=== PATIENT | female | born 2005 | race Caucasian/White ===

== ENCOUNTER → 2023-12-06 10:56 | Outpatient (BNVA) | payer OTHER, SELFPAY | PROVIDERS: Family Provider Pediatrics Adolescent Medicine; Visit Provider Nurse Practitioner | DX: R11.0 Nausea (principal); Z32.02 Encounter for pregnancy test, result negative | CPT/HCPCS: 81025 ==

== ENCOUNTER 2023-12-12 21:16 | Emergency (ER) | payer OTHER, SELFPAY ==
[2023-12-12 21:20] VITALS: BP 121/72; PULSE 142; RESP 16; TEMP 37.2; O2SAT 98
--- NOTE | 2023-12-12 21:33 | PC.NURSE ---
Pt on bedside satellite project site monitor
[2023-12-12] MEDS: diphenhydrAMINE 50 mg/mL SDV 1mL 25 MG IVP (22:04)
[2023-12-12] MEDS: metoclopramide 5 mg/mL SDV 2 mL 10 MG IVP (22:04)
--- NOTE | 2023-12-12 22:04 | W.ED.HA ---
Documented by User: Venkatesh Peña DO 12/13/23 05:52 HPI - Headache General: Chief Complaint: Headache Stated Complaint: Headace,N/V Time Seen by Provider: 12/12/23 21:33 History of Present Illness: Patient presents to the ER with complaints of a headache for 2 weeks along with nausea vomiting chills and a sore throat. Patient has been seen at urgent care and also at [facility] for these. There is no testing noted per the patient however she was given a shot for her headache which did help. But then the symptoms returned. Patient denies any history of chronic headaches or migraines. Review of Systems General: Reports: 10 or more systems reviewed and unremarkable except in HPI and below PFSH ED PFSH: Social History Smoking and tobacco/nicotine status: current every day tobacco/nicotine user e-cigarettes Physical Exam Const: COMMON NORMALS: no acute distress, average body habitus, patient oriented x3, no limitations, healthy appearing, alert and well nourished HENMT: COMMON NORMALS: normocephalic, atraumatic, hearing grossly normal bilaterally, external ears normal, EAC's normal, TM's normal bilaterally, Normal external nose present, Normal nasal mucous membranes and turbinates present, moist oral mucous membranes and oropharynx normal HEAD & SCALP: normocephalic and atraumatic NOSE: Normal external nose present and Normal nasal mucous membranes and turbinates present EXTERNAL EAR: Yes external ears normal EXTERNAL AUDITORY CANAL: EAC's normal TYMPANIC MEMBRANE: TM's normal bilaterally Eye: COMMON NORMALS: Equal, round and reactive pupils present, EOMs intact bilaterally, conjunctivae normal and no scleral icterus CONJUNCTIVA: Yes conjunctivae normal PUPIL: Yes Equal, round and reactive pupils present Neck/C-Spine: COMMON NORMALS: full ROM, no lymphadenopathy, supple, no meningeal signs, no JVD and Thyroid normal THYROID: Thyroid normal Chest: COMMONS NORMALS: normal inspection of the chest and normal palpation of entire chest wall Resp: COMMON NORMALS: normal respiratory effort, No retractions, No use of accessory muscles and clear to auscultation bilaterally AUSCULTATION: clear to auscultation bilaterally Cardio: COMMON NORMALS: no JVD, regular rate, regular rhythm, S1 normal heart sound present, S2 normal heart sound present, No gallops present (Cardio), No clicks present (Cardio), No murmurs present (Cardio) and No rub (Cardio) RATE: regular rate RHYTHM: regular rhythm HEART SOUNDS: S1 normal heart sound present and S2 normal heart sound present GI: COMMON NORMALS: Normal to inspection, nondistended, normoactive bowel sounds present, Soft to palpation, non-tender, No hepatosplenomegaly present and no masses PALPATION: Yes Soft to palpation and Yes No hepatosplenomegaly present Neuro: COMMON NORMALS: patient oriented x3 SENSORIUM/ORIENTATION: Yes alert MENINGEAL SIGNS: Yes no meningeal signs Course Vital Signs: Vital signs: Vital Signs Temperature 99.0 F 12/13/23 15:30 Pulse Rate 109 H 12/13/23 15:30 Respiratory Rate 28 H 12/13/23 15:30 Blood Pressure 113/63 12/13/23 15:30 Pulse Oximetry 96 12/13/23 15:30 Oxygen Delivery Me thod Room Air 12/13/23 09:14 MDM - Headache Differential Diagnosis Likely migraine and headache; Unlikely tension headache, subarachnoid hemorrhage, meningitis, sinusitis or postconcussion syndrome Medical Records I reviewed the patient's medical records. Lab Data I reviewed the patient's lab results. 12/13/23 09:00 12/13/23 09:00 Radiology Impressions Abdomen/Pelvis CT 12/12/23 22:44 IMPRESSION: 1. No visible gallbladder inflammatory change or biliary tree dilation. Equivocal gallstone. Consider ultrasound for further evaluation. 2. Mild splenomegaly. Mildly prominent periportal and para-aortic lymph nodes. Query mononucleosis. Abdomen Ultrasound 12/13/23 00:48 IMPRESSION: No acute findings. Laboratory Results WBC 19.22 10^3/uL (4.5-13.0) H 12/13/23 09:00 Corrected WBC Cancelled 12/12/23 21:36 RBC 4.94 10^6/uL (3.85-5.65) 12/13/23 09:00 Hgb 14.20 g/dL (12.4-14.8) 12/13/23 09:00 Hct 42.3 % (36-47) 12/13/23 09:00 MCV 85.6 fl (85-98) 12/13/23 09:00 MCH 28.7 pg (27-33) 12/13/23 09:00 MCHC 33.6 g/dL (30-55) 12/13/23 09:00 RDW 14.6 % (12.1-15.1) 12/13/23 09:00 Plt Count 209 10^3/cmm (157-399) 12/13/23 09:00 MPV 10.5 fL (7.4-10.4) H 12/13/23 09:00 Gran % Cancelled 12/12/23 21:36 Neut % (Auto) 31.1 % 12/13/23 09:00 Lymph % (Auto) 60.8 % 12/13/23 09:00 Darke % (Auto) 6.2 % 12/13/23 09:00 Eos % (Auto) 0.0 % 12/13/23 09:00 Baso % (Auto) 1.0 % 12/13/23 09:00 Neut # (Auto) 5.97 10^3/uL (1.8-8.0) 12/13/23 09:00 Lymph # (Auto) 11.7 10^3/uL (1.5-6.5) H 12/13/23 09:00 Darke # (Auto) 1.2 10^3/uL (0.2-0.9) H 12/13/23 09:00 Eos # (Auto) 0.0 10^3/uL (0.0-0.8) 12/13/23 09:00 Baso # (Auto) 0.2 10^3/uL (0.0-0.1) H 12/13/23 09:00 Absolute Gran (auto) Cancelled 12/12/23 21:36 Nucleated RBC % (auto) 0 % 12/13/23 09:00 Total Counted 100 (0-100) 12/12/23 22:05 Atypical Lymphs % 13.0 % (0-5) H 12/12/23 22:05 Segmented Neutrophils 39 % 12/12/23 22:05 Abs Segm Neuts (Man) 8.1 10/cmm (1.6-7.1) H 12/12/23 22:05 Band Neutrophils Not Reportable 12/12/23 22:05 Absolute Lymphocytes 11.6 10^3/cmm (1.2-3.4) H 12/12/23 22:05 Lymphocytes (Manual) 43 % 12/12/23 22:05 Monocytes (Manual) 5.0 % 12/12/23 22:05 Absolute Monocytes 1.0 10^3/cmm (0.1-0.6) H 12/12/23 22:05 Eosinophils (Manual) 0 % 12/12/23 22:05 Absolute Eosinophils 0.0 10^3/cmm (0.0-0.7) 12/12/23 22:05 Basophils (Manual) 0.0 % 12/12/23 22:05 Absolute Basophils 0.0 10^3/cmm (0.0-0.2) 12/12/23 22:05 Nucleated RBCs # 0.0 /100WBC 12/13/23 09:00 Smudge Cells 1+ H 12/12/23 22:05 Platelet Estimate Normal (Normal) 12/12/23 22:05 PT 14.40 SECONDS (12.1-14.9) 12/13/23 09:19 INR 1.08 (0.8-1.2) 12/13/23 09:19 Sodium 140 mmol/L (136-145) 12/13/23 09:00 Potassium 3.6 mmol/L (3.5-5.1) 12/13/23 09:00 Chloride 102 mmol/L (98-107) 12/13/23 09:00 Carbon Dioxide 23 mmol/L (22-29) 12/13/23 09:00 Anion Gap 18.6 (5-19) 12/13/23 09:00 BUN 10 mg/dL (6-20) 12/13/23 09:00 Creatinine 0.8 mg/dL (0.5-0.9) 12/13/23 09:00 GFR Calculation 91.4 mL/min (90-130) 12/13/23 09:00 Glucose 84 mg/dL (65-115) 12/13/23 09:00 Calculated Osmolality 288 mOsm/kg (285-295) 12/13/23 09:00 Lactic Acid 1.1 mmol/L (0.5-2.2) 12/13/23 06:11 Calcium 8.6 mg/dL (8.5-10.5) 12/13/23 09:00 Magnesium 2.1 mg/dL (1.7-2.3) 05/22/24 22:05 Total Bilirubin 3.4 mg/dL (0.15-1.2) H 12/13/23 09:00 AST 210 U/L (0-32) H 12/13/23 09:00 ALT 451 U/L (0-33) H 12/13/23 09:00 Alkaline Phosphatase 186 U/L (35-105) H 12/13/23 09:00 Total Protein 7.5 g/dL (6.6-8.7) 12/13/23 09:00 Albumin 3.5 g/dL (3.5-5.2) 12/13/23 09:00 Globulin 4.0 g/dL (1.3-4.6) 12/13/23 09:00 Lipase 39 U/L (13-60) 12/13/23 06:11 HCG, Qual Negative (Negative) 12/12/23 22:35 Urine Color Dark yellow (Yellow) 12/12/23 22: Urine Appearance Slightly cloudy (CLEAR) 12/12/23 22: Urine pH 5 (5-7) 12/12/23 22:35 Ur Specific Watson 1.020 (1.005-1.030) 12/12/23 22: Urine Protein 1+ (Negative) H 12/12/23 22:35 Urine Glucose (UA) Norm (Normal) 12/12/23 22: Urine Ketones 1+ (Negative) H 12/12/23 22:35 Urine Blood 2+ (Negative) H 12/12/23 22:35 Urine Nitrate Positive (Negative) H 12/12/23 22:35 Urine Bilirubin 2+ (Negative) H 12/12/23 22:35 Urine Urobilinogen 4 mg/dL (Negative) H 12/12/23 22:35 Ur Leukocyte Esterase 1+ (Negative) H 12/12/23 22:35 Urine RBC 5-10 /hpf (0-2) H 12/12/23 22:35 Urine WBC 10-15 /hpf (0-5) H 12/12/23 22:35 Ur Squamous Epith Cells 15-25 /hpf (0-5) H 12/12/23 22:35 Amorphous Sediment Not Reportable 12/12/23 22:35 Urine Bacteria 4+ /hpf (NONE) H 12/12/23 22:35 Urine Mucus 3+ /hpf 05/22/24 22:35 Salicylates < 0.3 mg/dL (3-10) L 12/13/23 09:00 Urine Opiates Screen Negative ng/mL (Negative) 12/12/23 22:35 Acetaminophen < 5.0 ug/mL (10-30) L 12/13/23 09:00 Ur Barbiturates Screen Negative ng/mL (Negative) 12/12/23 22:35 Ur Phencyclidine Scrn Negative ng/mL (Negative) 12/12/23 22:35 Ur Amphetamines Screen Negative ng/mL (Negative) 12/12/23 22:35 U Benzodiazepines Scrn Negative ng/mL (Negative) 12/12/23 22:35 Urine Cocaine Screen Negative ng/mL (Negative) 12/12/23 22:35 U Marijuana (THC) Screen Negative ng/mL (Negative) 12/12/23 22:35 Ethyl Alcohol < 10 mg/dL (0-10) 12/13/23 09:00 Hepatitis A IgM Ab Non-reactive (Nonreactive) 12/13/23 06:37 Hep Bs Antigen Non-reactive (Nonreactive) 12/13/23 06:37 Hep B Core IgM Ab Non-reactive (Nonreactive) 12/13/23 06:37 Hepatitis C Antibody Non-reactive (Nonreactive) 12/13/23 06:37 Monoscreen Negative (Negative) 12/12/23 22:05 Group A Strep Rapid Negative (Negative) 12/12/23 21:58 Discharge Plan Discharge Patient Disposition: Transfer to ED Clinical Impression: Ascending cholangitis Condition: Stable Prescriptions: No Action No Known Home Medications Referrals: Shannan Mariano MD [Primary Care Provider] - Sign Out Sign Out Data: Patient Sign Out occurred on 12/13/23 at 06:04. Patient's care was discussed, and care was transferred from Venkatesh Peña DO to Johnny Heredia DO. Coding Level of Care Code ED Brewery Technician for Chg Fwd Documented by User: Johnny Heredia DO 12/13/23 15:59 HPI - Headache General: Chief Complaint: Headache Stated Complaint: Headace,N/V Time Seen by Provider: 12/12/23 21:33 [facility] ED PFSH: Social History Smoking and tobacco/nicotine status: current every day tobacco/nicotine user e-cigarettes Course Vital Signs: Vital signs: Vital Signs Temperature 99.0 F 12/13/23 15:30 Pulse Rate 109 H 12/13/23 15:30 Respiratory Rate 28 H 12/13/23 15:30 Blood Pressure 113/63 12/13/23 15:30 Pulse Oximetry 96 12/13/23 15:30 Oxygen Delivery Me thod Room Air 12/13/23 09:14 MDM - Headache Medical Decision Making Care assumed at change of shift. Patient has initially presented is having a headache she describes as more of a tension like bandlike headache. Reviewing the labs that are done she has a significant white count with elevation of her Ruth liver enzymes and her T. bili lipase is normal. When I acquired her care from Dr. Peña was concerned about choledocholithiasis. Gallbladder ultrasound did not show any dilation of common bile duct or abnormalities of the gallbladder hepatitis panel was negative lipase was not elevated. She did have a significant number of atypical lymphocytes for Monospot was negative Eneida-Angel virus and tick panel ordered these will be done in a later time since they are send outs. Hepatitis acute panel was negative. Contacted GI at [facility] we checked a INR. This was normal they agreed to accept the patient for possible ERCP we had initiated Zosyn while she was here. Reviewed findings with the patient and her mother and next discussed the potential concerns and reason for referral they are agreeable. Medical Records I reviewed the patient's medical records. Lab Data I reviewed the patient's lab results. 12/13/23 09:00 12/13/23 09:00 Radiology Impressions Abdomen/Pelvis CT 12/12/23 22:44 IMPRESSION: 1. No visible gallbladder inflammatory change or biliary tree dilation. Equivocal gallstone. Consider ultrasound for further evaluation. 2. Mild splenomegaly. Mildly prominent periportal and para-aortic lymph nodes. Query mononucleosis. Abdomen Ultrasound 12/13/23 00:48 IMPRESSION: No acute findings. Laboratory Results WBC 19.22 10^3/uL (4.5-13.0) H 12/13/23 09:00 Corrected WBC Cancelled 12/12/23 21:36 RBC 4.94 10^6/uL (3.85-5.65) 12/13/23 09:00 Hgb 14.20 g/dL (12.4-14.8) 12/13/23 09:00 Hct 42.3 % (36-47) 12/13/23 09:00 MCV 85.6 fl (85-98) 12/13/23 09:00 MCH 28.7 pg (27-33) 12/13/23 09:00 MCHC 33.6 g/dL (30-55) 12/13/23 09:00 RDW 14.6 % (12.1-15.1) 12/13/23 09:00 Plt Count 209 10^3/cmm (157-399) 12/13/23 09:00 MPV 10.5 fL (7.4-10.4) H 12/13/23 09:00 Gran % Cancelled 12/12/23 21:36 Neut % (Auto) 31.1 % 12/13/23 09:00 Lymph % (Auto) 60.8 % 12/13/23 09:00 Darke % (Auto) 6.2 % 12/13/23 09:00 Eos % (Auto) 0.0 % 12/13/23 09:00 Baso % (Auto) 1.0 % 12/13/23 09:00 Neut # (Auto) 5.97 10^3/uL (1.8-8.0) 12/13/23 09:00 Lymph # (Auto) 11.7 10^3/uL (1.5-6.5) H 12/13/23 09:00 Darke # (Auto) 1.2 10^3/uL (0.2-0.9) H 12/13/23 09:00 Eos # (Auto) 0.0 10^3/uL (0.0-0.8) 12/13/23 09:00 Baso # (Auto) 0.2 10^3/uL (0.0-0.1) H 12/13/23 09:00 Absolute Gran (auto) Cancelled 12/12/23 21:36 Nucleated RBC % (auto) 0 % 12/13/23 09:00 Total Counted 100 (0-100) 12/12/23 22:05 Atypical Lymphs % 13.0 % (0-5) H 12/12/23 22:05 Segmented Neutrophils 39 % 12/12/23 22:05 Abs Segm Neuts (Man) 8.1 10/cmm (1.6-7.1) H 12/12/23 22:05 Band Neutrophils Not Reportable 12/12/23 22:05 Absolute Lymphocytes 11.6 10^3/cmm (1.2-3.4) H 12/12/23 22:05 Lymphocytes (Manual) 43 % 12/12/23 22:05 Monocytes (Manual) 5.0 % 12/12/23 22:05 Absolute Monocytes 1.0 10^3/cmm (0.1-0.6) H 12/12/23 22:05 Eosinophils (Manual) 0 % 12/12/23 22:05 Absolute Eosinophils 0.0 10^3/cmm (0.0-0.7) 12/12/23 22:05 Basophils (Manual) 0.0 % 12/12/23 22:05 Absolute Basophils 0.0 10^3/cmm (0.0-0.2) 12/12/23 22:05 Nucleated RBCs # 0.0 /100WBC 12/13/23 09:00 Smudge Cells 1+ H 12/12/23 22:05 Platelet Estimate Normal (Normal) 12/12/23 22:05 PT 14.40 SECONDS (12.1-14.9) 12/13/23 09:19 INR 1.08 (0.8-1.2) 12/13/23 09:19 Sodium 140 mmol/L (136-145) 12/13/23 09:00 Potassium 3.6 mmol/L (3.5-5.1) 12/13/23 09:00 Chloride 102 mmol/L (98-107) 12/13/23 09:00 Carbon Dioxide 23 mmol/L (22-29) 12/13/23 09:00 Anion Gap 18.6 (5-19) 12/13/23 09:00 BUN 10 mg/dL (6-20) 12/13/23 09:00 Creatinine 0.8 mg/dL (0.5-0.9) 12/13/23 09:00 GFR Calculation 91.4 mL/min (90-130) 12/13/23 09:00 Glucose 84 mg/dL (65-115) 12/13/23 09:00 Calculated Osmolality 288 mOsm/kg (285-295) 12/13/23 09:00 Lactic Acid 1.1 mmol/L (0.5-2.2) 12/13/23 06:11 Calcium 8.6 mg/dL (8.5-10.5) 12/13/23 09:00 Magnesium 2.1 mg/dL (1.7-2.3) 12/12/23 22:05 Total Bilirubin 3.4 mg/dL (0.15-1.2) H 12/13/23 09:00 AST 210 U/L (0-32) H 12/13/23 09:00 ALT 451 U/L (0-33) H 12/13/23 09:00 Alkaline Phosphatase 186 U/L (35-105) H 12/13/23 09:00 Total Protein 7.5 g/dL (6.6-8.7) 12/13/23 09:00 Albumin 3.5 g/dL (3.5-5.2) 12/13/23 09:00 Globulin 4.0 g/dL (1.3-4.6) 12/13/23 09:00 Lipase 39 U/L (13-60) 12/13/23 06:11 HCG, Qual Negative (Negative) 12/12/23: Urine Color Dark yellow (Yellow) 12/12/23 22: Urine Appearance Slightly cloudy (CLEAR) 12/12/23 22:35 Urine pH 5 (5-7) 12/12/23 22:35 Ur Specific Watson 1.020 (1.005-1.030) 12/12/23 22:35 Urine Protein 1+ (Negative) H 12/12/23 22:35 Urine Glucose (UA) Norm (Normal) 12/12/23 22:35 Urine Ketones 1+ (Negative) H 12/12/23 22:35 Urine Blood 2+ (Negative) H 12/12/23 22:35 Urine Nitrate Positive (Negative) H 12/12/23 22:35 Urine Bilirubin 2+ (Negative) H 12/12/23 22:35 Urine Urobilinogen 4 mg/dL (Negative) H 12/12/23 22:35 Ur Leukocyte Esterase 1+ (Negative) H 12/12/23 22:35 Urine RBC 5-10 /hpf (0-2) H 12/12/23 22:35 Urine WBC 10-15 /hpf (0-5) H 12/12/23 22:35 Ur Squamous Epith Cells 15-25 /hpf (0-5) H 12/12/23 22:35 Amorphous Sediment Not Reportable 12/12/23 22:35 Urine Bacteria 4+ /hpf (NONE) H 12/12/23 22:35 Urine Mucus 3+ /hpf 12/12/23 22:35 Salicylates < 0.3 mg/dL (3-10) L 12/13/23 09:00 Urine Opiates Screen Negative ng/mL (Negative) 12/12/23 22:35 Acetaminophen < 5.0 ug/mL (10-30) L 12/13/23 09:00 Ur Barbiturates Screen Negative ng/mL (Negative) 12/12/23 22:35 Ur Phencyclidine Scrn Negative ng/mL (Negative) 12/12/23 22:35 Ur Amphetamines Screen Negative ng/mL (Negative) 12/12/23 22:35 U Benzodiazepines Scrn Negative ng/mL (Negative) 12/12/23 22:35 Urine Cocaine Screen Negative ng/mL (Negative) 12/12/23 22:35 U Marijuana (THC) Screen Negative ng/mL (Negative) 12/12/23 22:35 Ethyl Alcohol < 10 mg/dL (0-10) 12/13/23 09:00 Hepatitis A IgM Ab Non-reactive (Nonreactive) 12/13/23 06:37 Hep Bs Antigen Non-reactive (Nonreactive) 12/13/23 06:37 Hep B Core IgM Ab Non-reactive (Nonreactive) 12/13/23 06:37 Hepatitis C Antibody Non-reactive (Nonreactive) 12/13/23 06:37 Monoscreen Negative (Negative) 12/12/23 22:05 Group A Strep Rapid Negative (Negative) 12/12/23 21:58 All radiology interpretation(s) finalized by discharge Discharge Plan Discharge Patient Disposition: Transfer to ED Clinical Impression: Ascending cholangitis Condition: Stable Prescriptions: No Action No Known Home Medications Referrals: Shannan Mariano MD [Primary Care Provider] - Sign Out Sign Out Data: Patient Sign Out occurred on 12/13/23 at 06:04. Patient's care was discussed, and care was transferred from Venkatesh Peña DO to Johnny Heredia DO. Coding Level of Care Code ED Brewery Technician for Louiseg Johana
[2023-12-12] MEDS: ketorolac 30 mg/mL INJ IVP (22:05)
[2023-12-12] MEDS: sodium chloride 0.9% 1,000 ML 999 ML IV (22:08)
[2023-12-12 22:09] VITALS: BP 134/86; PULSE 118; RESP 18; O2SAT 98
[2023-12-12 22:12] LABS: Hematocrit 42.5 % (36-47); Mean Corpuscular HGB Conc 34.1 g/dL (30-55); Mean Platelet Volume 10.1 fL (7.4-10.4); Platelet Count 199 10^3/cmm (157-399); Red Cell Distribution Width 14.4 % (12.1-15.1); White Blood Count 20.74 10^3/uL (4.5-13.0)
[2023-12-12 22:20] LABS: Rapid Strep A Test Negative (Negative)
[2023-12-12 22:32] LABS: Alanine Aminotransferase 526 U/L (0-33); Albumin Level 3.8 g/dL (3.5-5.2); Alkaline Phosphatase 196 U/L (35-105); Anion Gap 17.3 (5-19); Aspartate Amino Transferase 272 U/L (0-32); Blood Urea Nitrogen 8 mg/dL (6-20); Calcium 8.5 mg/dL (8.5-10.5); Carbon Dioxide 23 mmol/L (22-29); Chloride 100 mmol/L (98-107); Glomerular Filtration Rate 106.7 mL/min (90-130); Glucose 96 mg/dL (65-115); Magnesium 2.1 mg/dL (1.7-2.3); Osmolality Calculated 282 mOsm/kg (285-295); Potassium 3.3 mmol/L (3.5-5.1); Sodium 137 mmol/L (136-145); Total Bilirubin 3.6 mg/dL (0.15-1.2); Total Protein 7.8 g/dL (6.6-8.7)
[2023-12-12 22:33] LABS: Slide Review Slide Review Perform
[2023-12-12 22:34] LABS: Absolute Segmented Neutrophil 8.1 10/cmm (1.6-7.1); Eosinophils 0 %; Lymphocytes 43 %; Lymphocytes Absolute 11.6 10^3/cmm (1.2-3.4); Platelet Estimate Normal (Normal); Segmented Neutrophils 39 %; Smudge Cells 1+; Total Cells Counted 100 (0-100)
[2023-12-12 22:38] VITALS: BP 136/81; PULSE 111; RESP 16; O2SAT 95
[2023-12-12 22:42] LABS: HCG Qualitative Urine. Negative (Negative)
--- NOTE | 2023-12-12 22:44 | CTR_ITS ---
PROCEDURE INFORMATION: Exam: CT Abdomen And Pelvis With Contrast Exam date and time: 12/12/2023 11:20 PM Age: 18 years old Clinical indication: Other: Elev lfts; Additional info: Elevated lfts and bilirubin, tachycardia TECHNIQUE: Imaging protocol: Computed tomography of the abdomen and pelvis with contrast. Radiation optimization: All CT scans at this facility use at least one of these dose optimization techniques: automated exposure control; mA and/or kV adjustment per patient size (includes targeted exams where dose is matched to clinical indication); or iterative reconstruction. Contrast material: [id number]; Contrast volume: 100 ml; Contrast route: INTRAVENOUS (IV); COMPARISON: CR XR chest 2V* [id number] 06/07/2017 7:19 PM RADIATION DOSE METRICS: Total DLP (mGy-cm): 761.2 FINDINGS: Lungs: Clear basilar lung parenchyma. Pleural spaces: No pleural fluid. Heart: Normal heart size. Liver: Minimal fatty infiltration of the liver. Liver measures 16.6 cm in length. Gallbladder and bile ducts: There may be a gallstone in the thin walled gallbladder. No gallbladder inflammatory change or biliary tree dilation. Pancreas: Normal. No ductal dilation. Spleen: Spleen measures 13.5 cm in length. Adrenal glands: Normal configuration. Kidneys and ureters: Kidneys enhance symmetrically and demonstrate no evidence of mass, calculus, obstruction, or inflammation. Stomach and bowel: Unremarkable. No obstruction. No mural thickening. Appendix: Normal appendix is confirmed. Intraperitoneal space: No free air. No significant fluid collection. Vasculature: Normal caliber arterial structures. Lymph nodes: Scattered non pathologically enlarged para-aortic lymph nodes are noted. Several mildly prominent periportal lymph nodes are visible. Urinary bladder: Unremarkable as visualized. Reproductive: Physiologic appearance for age. Bones/joints: No fracture or destructive lesion. Soft tissues: Tiny fat containing umbilical hernia. CT/CT abdomen pelvis w con* [id number] IMPRESSION: 1. No visible gallbladder inflammatory change or biliary tree dilation. Equivocal gallstone. Consider ultrasound for further evaluation. 2. Mild splenomegaly. Mildly prominent periportal and para-aortic lymph nodes. Query mononucleosis.
[2023-12-12 22:57] LABS: Bilirubin Urine 2+ (Negative); Blood Urine 2+ (Negative); Glucose Urine UA Norm (Normal); Ketones Urine 1+ (Negative); Nitrate Urine Positive (Negative); Protein Urine 1+ (Negative); Urine Appearance Slightly Cloudy (CLEAR); Urine Color Dark Yellow (Yellow); pH Urine 5 (5-7)
[2023-12-12 22:58] LABS: Add Urine Microscopic? YES; Leukocyte Esterase Urine 1+ (Negative); Urobilinogen Urine 4 mg/dL (Negative)
[2023-12-12 22:59] LABS: Add Urine Culture? No; Bacteria Urine 4+ /hpf; Mucus Urine 3+ /hpf; Squamous Epithelial Cell Urine 15-25 /hpf (0-5)
[2023-12-12 23:01] LABS: Monoscreen Negative (Negative)
[2023-12-12 23:02] LABS: Amphetamines Screen Urine Negative (Negative); Barbiturates Screen Urine Negative (Negative); Benzodiazepines Screen Urine Negative (Negative); Cocaine Screen Urine Negative (Negative); Opiate Screen Urine Negative (Negative); PCP Screen Urine Negative (Negative); THC Screen Urine Negative (Negative)
[2023-12-12 23:06] VITALS: BP 128/79; PULSE 112; RESP 18; O2SAT 95
[2023-12-12] MEDS: iohexol 350 mg/mL 500 mL Btl (per mL) IV (23:21)
[2023-12-12 23:31] VITALS: BP 124/73; PULSE 104; RESP 18; O2SAT 95
[2023-12-13] VITALS (48 sets, daily range): BP systolic 111–151; BP diastolic 44–96; PULSE 96–128; RESP 12–31; TEMP 37.2; O2SAT 94–99
--- NOTE | 2023-12-13 00:48 | USR_ITS ---
PROCEDURE INFORMATION: Exam: US Abdomen, Limited; Right Upper Quadrant Exam date and time: 12/13/2023 12:57 AM Age: 18 years old Clinical indication: Abdominal pain; Epigastric; Additional info: Ruq US, high lfts, possible gallstone on CT TECHNIQUE: Imaging protocol: Real time ultrasound of the abdomen with image documentation. Limited exam focused on the right upper quadrant. COMPARISON: CT abdomen pelvis w con* [id number] 12/12/2023 11:20 PM FINDINGS: Liver: Normal. No masses. Gallbladder: Normal. No gallstones. There is no gallbladder wall thickening. Biliary ducts: Normal. No stones. No dilation. Pancreas: Visualized pancreas is unremarkable. Right kidney: Normal. No mass. No hydronephrosis. US/US abdomen limited [id number] IMPRESSION: No acute findings.
[2023-12-13] MEDS: piperacillin-tazobactam 3.375 GM in sodium chloride 0.9% (plus) 50 ML IV (06:00)
[2023-12-13 06:42] LABS: Lactic Sepsis W/Reflex 1.1 mmol/L (0.5-2.2); Lipase 39 U/L (13-60)
[2023-12-13 07:49] LABS: Hepatitis A Antibody IgM Non-Reactive (Nonreactive); Hepatitis B Core IgM Non-Reactive (Nonreactive); Hepatitis B Surface Antigen Non-Reactive (Nonreactive); Hepatitis C Virus Antibody Non-Reactive (Nonreactive)
[2023-12-13] MEDS: sodium chloride 0.9% 1,000 ML 999 ML IV (09:02)
[2023-12-13 09:21] LABS: Basophils # 0.2 10^3/uL (0.0-0.1); Hematocrit 42.3 % (36-47); Lymphocytes # 11.7 10^3/uL (1.5-6.5); Lymphocytes % 60.8 %; Mean Corpuscular HGB Conc 33.6 g/dL (30-55); Mean Corpuscular Hemoglobin 28.7 pg (27-33); Mean Corpuscular Volume 85.6 fl (85-98); Mean Platelet Volume 10.5 fL (7.4-10.4); Monocytes # 1.2 10^3/uL (0.2-0.9); Monocytes % 6.2 %; Neutrophils # 5.97 10^3/uL (1.8-8.0); Neutrophils % 31.1 %; Nucleated Red Blood Cells % 0 %; Platelet Count 209 10^3/cmm (157-399); Red Blood Count 4.94 10^6/uL (3.85-5.65); Red Cell Distribution Width 14.6 % (12.1-15.1); White Blood Count 19.22 10^3/uL (4.5-13.0)
[2023-12-13 09:26] LABS: Alanine Aminotransferase 451 U/L (0-33); Albumin Level 3.5 g/dL (3.5-5.2); Alkaline Phosphatase 186 U/L (35-105); Aspartate Amino Transferase 210 U/L (0-32); Blood Urea Nitrogen 10 mg/dL (6-20); Calcium 8.6 mg/dL (8.5-10.5); Carbon Dioxide 23 mmol/L (22-29); Chloride 102 mmol/L (98-107); Creatinine Clr Calc Pharmacy 111.1906; Glomerular Filtration Rate 91.4 mL/min (90-130); Glucose 84 mg/dL (65-115); Osmolality Calculated 288 mOsm/kg (285-295); Sodium 140 mmol/L (136-145); Total Bilirubin 3.4 mg/dL (0.15-1.2); Total Protein 7.5 g/dL (6.6-8.7)
[2023-12-13 09:27] LABS: Acetaminophen < 5.0 ug/mL (10-30); Alcohol Level < 10 mg/dL (0-10); Anion Gap 18.6 (5-19); Potassium 3.6 mmol/L (3.5-5.1); Salicylate < 0.3 mg/dL (3-10)
[2023-12-13 09:55] LABS: INR 1.08 (0.8-1.2)
[2023-12-13 10:05] LABS: Slide Review Slide Review Perform
[2023-12-17 07:40] LABS: Epstein Barr Virus DNA PCR 4.69; Epstein Barr Virus DNA QN PCR 49168 copies/mL; Epstein Barr Virus Source WHOLE BLOOD
[2023-12-18 14:41] LABS: Lyme AB IGG, Blot NEGATIVE (NEGATIVE)
[2023-12-19 20:25] LABS: RMSF IGG NOT DETECTED; RMSF IGM NOT DETECTED
[2023-12-19 21:25] LABS: E. Chaffeensis AB IGG <1:64; E. Chaffeensis AB IGM <1:20
== END 2023-12-13 15:34 ==
PROVIDERS: Emergency Medicine; Emergency Provider Family Medicine; PCP Pediatrics Adolescent Medicine
DX: K83.09 Other cholangitis (principal); F17.290 Nicotine dependence, other tobacco product, uncomplicated
CPT/HCPCS: 36415; 74177; 76705; 80053; 80074; 80306; 80307; 81001; 81025; 83605; 83690; 83735; 85007; 85025; 85610; 86308; 86618; 86666; 86757; 87081; 87798; 87880; 96361; 96365; 96375; 99285; J1200; J1885; J2543; J2765; J7030; Q9967

== ENCOUNTER → 2024-01-02 10:08 | Outpatient (BNVA) | payer OTHER, SELFPAY | PROVIDERS: PCP Clinical Nurse Specialist Adult Health; Visit Provider Clinical Nurse Specialist Adult Health | DX: R10.13 Epigastric pain (principal); R74.01 Elevation of levels of liver transaminase levels | CPT/HCPCS: 80053; 85025; 86140 ==

== ENCOUNTER → 2024-05-16 10:53 | Outpatient (BNVA) | payer OTHER, SELFPAY | DX: Z32.01 Encounter for pregnancy test, result positive (principal); N92.6 Irregular menstruation, unspecified | CPT/HCPCS: 81025; 84702 ==

== ENCOUNTER → 2024-06-12 12:54 | Outpatient (BNVA) | payer OTHER, SELFPAY | PROVIDERS: Visit Provider Nurse Practitioner Women's Health | DX: N91.2 Amenorrhea, unspecified (principal); N92.6 Irregular menstruation, unspecified | CPT/HCPCS: 76801; 81025 ==

== ENCOUNTER → 2024-07-10 10:27 | Outpatient (BNVA) | payer OTHER, SELFPAY | PROVIDERS: Visit Provider Nurse Practitioner Women's Health | DX: Z34.90 Encounter for supervision of normal pregnancy, unspecified, unspecified trimester (principal) | CPT/HCPCS: 80307; 82105; 83036; 84315; 85025; 86592; 86762; 86803; 86850; 86900; 87086; 87340; 87491; 87591; 87661; 87806 ==

== ENCOUNTER → 2024-07-31 11:18 | Outpatient (BNVA) | payer OTHER, SELFPAY | PROVIDERS: Visit Provider Obstetrics & Gynecology | DX: Z34.02 Encounter for supervision of normal first pregnancy, second trimester (principal); Z3A.00 Weeks of gestation of pregnancy not specified | CPT/HCPCS: 84315; 87491; 87591; 87661 ==

== ENCOUNTER → 2024-08-05 09:14 | Outpatient (BNVA) | payer OTHER, SELFPAY | PROVIDERS: Visit Provider Obstetrics & Gynecology | DX: Z34.92 Encounter for supervision of normal pregnancy, unspecified, second trimester (principal) | CPT/HCPCS: 76805 ==

== ENCOUNTER → 2024-08-14 08:59 | Outpatient (BNVA) | payer OTHER, SELFPAY | PROVIDERS: Visit Provider Obstetrics & Gynecology | DX: Z34.02 Encounter for supervision of normal first pregnancy, second trimester (principal) | CPT/HCPCS: 82950; 84315; 87086 ==

== ENCOUNTER → 2024-08-28 09:57 | Outpatient (BNVA) | payer OTHER, SELFPAY | PROVIDERS: Visit Provider Nurse Practitioner Women's Health | DX: Z34.02 Encounter for supervision of normal first pregnancy, second trimester (principal) | CPT/HCPCS: 84315; 87086 ==

== ENCOUNTER 2024-09-10 21:18 | Outpatient (CLI) | payer OTHER, SELFPAY ==
[2024-09-10 21:15] VITALS: BMI 38.7
[2024-09-10 21:22] VITALS: BP 151/76; PULSE 104
[2024-09-10 21:24] VITALS: BP 148/65; PULSE 96
[2024-09-10] MEDS: acetaminophen 500 mg Tablet 1000 MG PO (22:14)
[2024-09-10] MEDS: ondansetron 2 mg/ML SDV 2 mL 4 MG IVP (22:14)
[2024-09-10] MEDS: lactated ringers 1,000 ML 999 ML IV (22:15)
[2024-09-10 22:19] VITALS: BP 113/62; PULSE 92
[2024-09-10 22:21] LABS: Bilirubin Urine Negative (Negative); Blood Urine Negative (Negative); Glucose Urine UA Negative (Normal); Ketones Urine Negative (Negative); Leukocyte Esterase Urine Negative (Negative); Nitrate Urine Negative (Negative); Protein Urine Trace (Negative); Urine Appearance Cloudy (CLEAR); Urine Color Yellow (Yellow)
[2024-09-10 22:23] LABS: UA Manual Slide Review YES
[2024-09-10 22:34] VITALS: BP 111/57; PULSE 88
[2024-09-10 22:38] LABS: Add Urine Culture? No; Amorphous Sediment Urine 1+ /hpf; Squamous Epithelial Cell Urine 0-4 /hpf (0-5)
[2024-09-10 22:49] VITALS: BP 108/58; PULSE 83
[2024-09-10 23:04] VITALS: BP 116/58; PULSE 89
== END 2024-09-10 23:13 | disposition home or self-care (01) ==
LOC: OPOB 21:19 → OBGYN 21:20
PROVIDERS: Visit Provider Obstetrics & Gynecology
DX: O26.899 Other specified pregnancy related conditions, unspecified trimester (principal); Z3A.00 Weeks of gestation of pregnancy not specified; R10.9 Unspecified abdominal pain
CPT/HCPCS: 81001; 96374; 99211; J2405; J7120

== ENCOUNTER → 2024-09-26 10:26 | Outpatient (BNVA) | payer OTHER, SELFPAY | PROVIDERS: Visit Provider Obstetrics & Gynecology | DX: Z34.90 Encounter for supervision of normal pregnancy, unspecified, unspecified trimester (principal) | CPT/HCPCS: 84315; 85025 ==

== ENCOUNTER → 2024-10-02 08:00 | Outpatient (BNVA) | payer OTHER, SELFPAY | PROVIDERS: Visit Provider Obstetrics & Gynecology | DX: Z34.93 Encounter for supervision of normal pregnancy, unspecified, third trimester (principal) | CPT/HCPCS: 82951; 82952; 85025 ==

== ENCOUNTER → 2024-10-09 09:52 | Outpatient (BNVA) | payer OTHER, SELFPAY | PROVIDERS: Visit Provider Obstetrics & Gynecology | DX: Z34.90 Encounter for supervision of normal pregnancy, unspecified, unspecified trimester (principal) | CPT/HCPCS: 84315 ==

== ENCOUNTER 2024-10-16 01:46 | Outpatient (CLI) | payer OTHER, SELFPAY ==
[2024-10-16] VITALS (16 sets, daily range): BP systolic 104–163; BP diastolic 54–90; PULSE 75–93; RESP 16; TEMP 36.9; O2SAT 99; BMI 41.0
== END 2024-10-16 06:46 | disposition home or self-care (01) ==
LOC: OPOB 01:46 → OBGYN 01:47
PROVIDERS: Visit Provider Obstetrics & Gynecology
DX: O26.899 Other specified pregnancy related conditions, unspecified trimester (principal); Z3A.00 Weeks of gestation of pregnancy not specified; R10.9 Unspecified abdominal pain
CPT/HCPCS: 59025; 99211

== ENCOUNTER → 2024-10-23 10:04 | Outpatient (BNVA) | payer OTHER, SELFPAY | PROVIDERS: Visit Provider Nurse Practitioner Women's Health | DX: Z34.90 Encounter for supervision of normal pregnancy, unspecified, unspecified trimester (principal) | CPT/HCPCS: 84315 ==

== ENCOUNTER → 2024-11-07 08:11 | Outpatient (BNVA) | payer OTHER, SELFPAY | PROVIDERS: Visit Provider Nurse Practitioner Women's Health | DX: Z34.92 Encounter for supervision of normal pregnancy, unspecified, second trimester (principal) | CPT/HCPCS: 84315 ==

== ENCOUNTER → 2024-11-21 08:13 | Outpatient (BNVA) | payer OTHER, SELFPAY | PROVIDERS: Visit Provider Nurse Practitioner Women's Health | DX: Z34.90 Encounter for supervision of normal pregnancy, unspecified, unspecified trimester (principal) | CPT/HCPCS: 84315; 87081 ==

== ENCOUNTER 2024-11-27 08:12 | Outpatient (CLI) | payer OTHER, MEDICAID, SELFPAY | END 2024-11-27 08:13 | disposition home or self-care (01) | LOC: OPOB 12-12 12:52 | PROVIDERS: Visit Provider Nurse Practitioner Women's Health | DX: Z34.90 Encounter for supervision of normal pregnancy, unspecified, unspecified trimester (principal); Z36.9 Encounter for antenatal screening, unspecified | CPT/HCPCS: 76816; 76820; 84315 ==

== ENCOUNTER → 2024-12-03 08:07 | Outpatient (BNVA) | payer OTHER, MEDICAID, SELFPAY | PROVIDERS: Visit Provider Obstetrics & Gynecology | DX: Z34.90 Encounter for supervision of normal pregnancy, unspecified, unspecified trimester (principal) | CPT/HCPCS: 84315 ==

== ENCOUNTER 2024-12-06 06:33 | Outpatient (CLI) | payer OTHER, MEDICAID, SELFPAY ==
[2024-12-06 06:44] VITALS: RESP 18; BMI 43.5
[2024-12-06 06:52] VITALS: BP 138/78; PULSE 105
[2024-12-06 06:53] VITALS: RESP 18
[2024-12-06 08:03] LABS: Bilirubin Urine 1+ (Negative); Blood Urine Negative (Negative); Glucose Urine UA Negative (Normal); Ketones Urine Trace (Negative); Leukocyte Esterase Urine 1+ (Negative); Nitrate Urine Negative (Negative); Protein Urine 1+ (Negative); Urine Appearance Clear (CLEAR); Urine Color Dark Yellow (Yellow); pH Urine 7.5 (5-7)
[2024-12-06 08:07] LABS: RBC Urine 0-2 /hpf (0-2); Specific Gravity, Urine 1.034 (1.005-1.030); WBC Urine 21-50 /hpf (0-5)
[2024-12-06 08:08] LABS: Add Urine Culture? No; Bacteria Urine 4+ /hpf; Hyaline Casts Urine 3.71 /lpf
--- NOTE | 2024-12-06 08:20 | P.TNLD_ITS ---
OB L&D Triage Visit Information: Date of evaluation: 12/08/24 Comments/Additional reason(s) for visit: 19 y.o. G1 EDC December 17, 2024 At 38 w 3 d Presents to L&D c/o right-sided abdominal pain since last night + nausea and vomiting No fever, chills No vaginal bleeding or fluid leakage No back pain, dysuria + active movements Evaluation: monitor accelerations: Present 15x15 Laboratory results: Laboratory Tests 12/06/24 12/06/24 06:57 09:35 WBC 10.91 RBC 4.24 Hgb 11.50 Hct 35.5 L MCV 83.7 L MCH 27.1 MCHC 32.4 RDW 12.8 Plt Count 331 MPV 9.9 Neut % (Auto) 80.0 Lymph % (Auto) 13.7 [place] % (Auto) 5.5 Eos % (Auto) 0.1 Baso % (Auto) 0.4 Neut # (Auto) 8.73 H Lymph # (Auto) 1.5 [place] # (Auto) 0.6 Eos # (Auto) 0.0 Baso # (Auto) 0.0 Nucleated RBC % (a uto) 0 Nucleated RBCs # 0.0 Sodium 136 Potassium 3.7 Chloride 102 Carbon Dioxide 21 L Anion Gap 16.7 BUN 8 Creatinine 0.5 GFR Calculation 155.7 H Glucose 75 Calculated Osmolal ity 279 L Calcium 8.7 Total Bilirubin 0.9 AST 36 H ALT 36 H Alkaline Phosphata se 177 H Total Protein 6.5 L Albumin 3.3 L Globulin 3.2 Urine Color Dark yellow A Urine Appearance Clear Urine pH 7.5 Ur Specific Gravit y 1.034 H Urine Protein 1+ A Urine Glucose (UA) Negative Urine Ketones Trace Urine Blood Negative Urine Nitrate Negative Urine Bilirubin 1+ H Urine Urobilinogen 1.0 Ur Leukocyte Sarahi ase 1+ A Urine RBC 0-2 Urine WBC 21-50 H Ur Squamous Epith Cells 11-20 H Amorphous Sediment Not Reportable Urine Bacteria 4+ H Hyaline Casts 3.71 Comments: VS afebrile, VS normal General mild discomfort, awake, alert HEENT normal Lungs clear Cor: RRR Abd: gravid Soft, + moderate tenderness to palpation right abdomen No rebound Ext: no edema External monitor: no uterine contractions heart tracing good variability, + accelerations Care JATINDER Calculator Estimated Delivery Date Method Current WG Current Estimate 12/17/24 LMP (Certain) 38w 5d Other Estimates 12/18/24 Ultrasound #1 38w 4d Specific Issues/Plans * OBESITY normal early GCT; 3-hour GTT normal * DEPRESSION managed without medication Final Diagnosis Final Diagnosis (1) Supervision of normal first : Plan: 38 w 3 d Status: Acute Qualifiers: Trimester: second trimester Qualified Code(s): Z34.02 - Encounter for supervision of normal first , second trimester Code(s): Z34.00 - Encounter for supervision of normal first , unspecified trimester (2) Abdominal pain: Plan: Right-sided abdominal pain Draw CBC, CMP Send UA and urine culture Plan MRI for possible appendicitis or cholelithiasis Status: Acute Code(s): R10.9 - Unspecified abdominal pain Coding Level of Care Code Acute Code for Chg Fwd Diagnoses Encounter for supervision of normal first in second trimester Z34.02 Trimester: second trimester Abdominal pain R10.9
[2024-12-06 09:44] LABS: Basophils % 0.4 %; Eosinophils % 0.1 %; Hematocrit 35.5 % (36-47); Lymphocytes # 1.5 10^3/uL (0.8-4.8); Lymphocytes % 13.7 %; Mean Corpuscular HGB Conc 32.4 g/dL (30-55); Mean Corpuscular Hemoglobin 27.1 pg (27-33); Mean Corpuscular Volume 83.7 fl (85-98); Mean Platelet Volume 9.9 fL (7.4-10.4); Monocytes # 0.6 10^3/uL (0.2-0.9); Monocytes % 5.5 %; Neutrophils # 8.73 10^3/uL (1.8-7.7); Nucleated Red Blood Cells % 0 %; Platelet Count 331 10^3/cmm (157-399); Red Blood Count 4.24 10^6/uL (3.85-5.65); Red Cell Distribution Width 12.8 % (12.1-15.1); White Blood Count 10.91 10^3/uL (3.29-11.43)
[2024-12-06 09:55] VITALS: BP 110/60; PULSE 80
[2024-12-06 10:01] LABS: Alanine Aminotransferase 36 U/L (0-33); Albumin Level 3.3 g/dL (3.5-5.2); Alkaline Phosphatase 177 U/L (35-105); Anion Gap 16.7 (5-19); Aspartate Amino Transferase 36 U/L (0-32); Blood Urea Nitrogen 8 mg/dL (6-20); Calcium 8.7 mg/dL (8.5-10.5); Carbon Dioxide 21 mmol/L (22-29); Chloride 102 mmol/L (98-107); Creatinine Clr Calc Pharmacy 198.0888; Globulin 3.2 g/dL (1.3-4.6); Glomerular Filtration Rate 155.7 mL/min (90-130); Glucose 75 mg/dL (65-115); Osmolality Calculated 279 mOsm/kg (285-295); Potassium 3.7 mmol/L (3.5-5.1); Sodium 136 mmol/L (136-145); Total Bilirubin 0.9 mg/dL (0.15-1.2); Total Protein 6.5 g/dL (6.6-8.7)
--- NOTE | 2024-12-06 10:14 | MRR_ITS ---
PROCEDURE INFORMATION: Exam: MR Abdomen Without Contrast Exam date and time: 12/06/2024 10:22 AM Age: 19 years old Clinical indication: Abdominal pain; Localized; Right; Additional info: Possible appy TECHNIQUE: Imaging protocol: Magnetic resonance imaging of the abdomen without contrast. COMPARISON: CT abdomen pelvis w con* [id number] 12/12/2023 11:20 PM FINDINGS: Liver: Not completely visualized. Gallbladder and biliary ducts: Not identify. Pancreas: Not clearly identified. Spleen: Not completely imaged. Adrenal glands: Partially visualized. No mass. Kidneys: Partially visualized. No solid mass. No hydronephrosis. Stomach and bowel: No bowel wall thickening, obstruction, or abnormal fluid collections. Appendix: Appendix was not visualized, however no dilated tubular structure observed in the right lower quadrant. The right lower quadrant mesenteric fat appears within normal limits, no evidence of pericecal or periappendiceal inflammatory changes. No periappendiceal fluid. Intraperitoneal space: No lymphadenopathy. Vasculature: No abdominal aortic aneurysm. Reproductive: Gravid uterus with normal-appearing fetus. No abnormal signal in the uterus or placenta as visualized. Ovaries/Adnexa: Ovaries are not definitively visualized due to gravid uterus; no adnexal masses or free fluid identified. Lymph nodes: No abnormal fluid collections, mass, or lymphadenopathy. No evidence of intra-abdominal inflammation. Bones/joints: Unremarkable. No suspicious lesions. Soft tissues: Unremarkable. MR/MR abdomen wo con [id number] IMPRESSION: No evidence of appendicitis.
[2024-12-06 12:26] VITALS: BP 126/72; PULSE 88
--- NOTE | 2024-12-06 12:35 | P.PN_ITS ---
MIX TECHNICIAN Subjective 2 Subjective: Interval history: Progress note update Patient states her pain is slightly better; feels hungry Patient afebrile WBC normal MRI of abdomen - no evidence of appendicitis or cholelithiasis Plan discharge patient to home f/u in 2 days call / return to ER if pain, vomiting, fever, chills Labor: Monitor Mode: External Contraction Pattern: Occasional Vitals/I&O/Wt Last Vital Signs Pulse 88 12/06/24 12:26 Resp 18 12/06/24 06:53 BP 126/72 12/06/24 12:26 Data 12/06/24 09:35 12/06/24 09:35 A&P Assessment and plan (1) Supervision of normal first : (2) Abdominal pain: PDMP PDMP Reviewed: Not Reviewed Attestations 2 Medical Necessity Statement*: patient at 38 w 3 d, presented with acute abdominal pain, nausea, and vomiting. Evaluation showed likely musculo-skeletal discomfort. plan discharge to home. Coding Level of Care Code Acute Code for Chg Fwd Diagnoses Encounter for supervision of normal first in second trimester Z34.02 Trimester: second trimester Abdominal pain R10.9
== END 2024-12-06 13:06 | disposition home or self-care (01) ==
LOC: OPOB 06:34 → OBGYN 06:35
PROVIDERS: Visit Provider Obstetrics & Gynecology
DX: O26.899 Other specified pregnancy related conditions, unspecified trimester (principal); Z3A.00 Weeks of gestation of pregnancy not specified; R10.9 Unspecified abdominal pain
CPT/HCPCS: 59025; 74181; 80053; 81001; 85025; 87086; 99211

== ENCOUNTER → 2024-12-11 14:14 | Outpatient (BNVA) | payer OTHER, MEDICAID, SELFPAY | PROVIDERS: Visit Provider Obstetrics & Gynecology | DX: Z34.90 Encounter for supervision of normal pregnancy, unspecified, unspecified trimester (principal) | CPT/HCPCS: 84315 ==

== ENCOUNTER 2024-12-17 12:26 | Outpatient (CLI) | payer OTHER, MEDICAID, SELFPAY ==
[2024-12-17 12:25] VITALS: BMI 45.3
[2024-12-17 12:31] VITALS: BP 124/75; PULSE 117
[2024-12-17 12:47] VITALS: BP 126/64; PULSE 93
[2024-12-17 13:01] VITALS: BP 126/64; PULSE 98
[2024-12-17 13:15] VITALS: BP 126/64; PULSE 98; RESP 17; TEMP 36.4; O2SAT 98
== END 2024-12-17 13:15 | disposition home or self-care (01) ==
LOC: OPOB 12:27 → OBGYN 12:27
PROVIDERS: Visit Provider Obstetrics & Gynecology
DX: Z36.87 Encounter for antenatal screening for uncertain dates (principal)
CPT/HCPCS: 59025; 99211

== ENCOUNTER 2024-12-18 08:00 | Inpatient (IN) | payer OTHER, MEDICAID, SELFPAY ==
[2024-12-18] VITALS (48 sets, daily range): BP systolic 108–197; BP diastolic 55–124; PULSE 67–148; RESP 16–20; TEMP 36.4–37.2; O2SAT 89–95; BMI 45.5
[2024-12-18] MEDS: miSOPROStol 100 mcg tablet 25 MCG VAGINAL (09:17)
[2024-12-18 10:19] LABS: Basophils % 0.4 %; Eosinophils # 0.1 10^3/uL (0.0-0.8); Eosinophils % 0.7 %; Hematocrit 35.3 % (36-47); Lymphocytes # 1.9 10^3/uL (0.8-4.8); Lymphocytes % 19.2 %; Mean Corpuscular HGB Conc 32.6 g/dL (30-55); Mean Corpuscular Hemoglobin 27.1 pg (27-33); Mean Corpuscular Volume 83.1 fl (85-98); Mean Platelet Volume 10.5 fL (7.4-10.4); Monocytes # 0.7 10^3/uL (0.2-0.9); Monocytes % 6.7 %; Neutrophils # 7.27 10^3/uL (1.8-7.7); Neutrophils % 72.5 %; Nucleated Red Blood Cells % 0 %; Platelet Count 325 10^3/cmm (157-399); Red Blood Count 4.25 10^6/uL (3.85-5.65); Red Cell Distribution Width 13.5 % (12.1-15.1); White Blood Count 10.02 10^3/uL (3.29-11.43)
--- NOTE | 2024-12-18 11:33 | PM.OPHPUD ---
Labor & Delivery H&P Update Date of Procedure: December 18, 2024 Date H&P Performed: 12/11/24 Changes to previous documentation: 19-year-old female G1, P0 with LMP 03/12/2024 JATINDER 12/17/2024 based on LMP consistent with 13-week ultrasound. Patient presents today to labor and delivery for elective induction of labor at 40.1 weeks gestation. Patient mitts to good movement occasional contraction, she denies abdominal pain leakage of fluid or vaginal bleeding. Induction of labor reviewed with patient in great detail to include use of Cytotec to thin the cervix followed by Pitocin to increase contractions frequency and intensity. Artificial rupture membranes may also be used to assist in labor progression. If nonreassuring monitoring should result section may be needed for baby's delivery. Patient and her family understands and agrees with plan. EFM?category 1 Cervix?2 cm / 50%/-2 vertex presentation Admission Diagnosis: Preop diagnosis: 40.1-week gestation Primary indication for procedure: Elective induction of labor Planned procedure: Cervical ripening with Cytotec/induction of labor Related Problem List Diagnoses (1) 40 weeks gestation of : (2) Obesity affecting : (3) Supervision of normal first : (4) Major depression: (5) Exercise-induced asthma: (6) Abdominal pain:
[2024-12-18] MEDS: dextrose 5%-lactated ringers 1,000 ML 125 ML IV (15:23)
[2024-12-18] MEDS: oxytocin 30 UNIT/500 ML BAG IV (15:24)
--- NOTE | 2024-12-18 18:06 | PM.OBGYPN ---
SUPERVISOR COMPONENT ASSEMBLER Subjective Subjective: Interval history: 19-year-old female G1, P0 at 40.1 weeks gestation admitted today for induction of labor. Cervical ripening with Cytotec was initiated, followed by Pitocin. Patient is comfortable with contractions q. 2 to 3 minutes currently. I discussed rupture of membranes to assist with labor progression. Patient verbalizes understand understanding, and agrees with the plan. EFM?category 1 Cervix?3 cm / 90%/-3 vertex presentation. AROM with clear fluid noted. Labor: Station: -2 Amniotic Membrane Status: Intact Monitor Mode: Palpation Contraction Pattern: Irregular Status: Category I Vitals/I&O/Wt Last Vital Signs Temp 98.9 F 12/18/24 17:56 Pulse 74 12/18/24 17:55 Resp 17 12/18/24 17:56 BP 135/77 12/18/24 17:55 O2 Del Method Room Air 12/18/24 08:40 12/18/24 12/18/24 12/18/24 06:59 14:59 22:59 Intake Total 247.184 / 247.184 Balance 247.184 / 247.184 Weight last 48 hrs Weight 105.687 kg Data 12/18/24 09:00 A&P Assessment and plan (1) 40 weeks gestation of : Continue with induction of labor. (2) Exercise-induced asthma: (3) Obesity affecting : (4) Supervision of normal first : (5) Major depression: PDMP PDMP Reviewed: Not Reviewed Attestations Medical Necessity Statement*: 19-year-old female G1, P0 at 40.1 weeks gestation admitted to labor and delivery for elective induction of labor. Coding Level of Care Code Acute Code for Chg Fwd Diagnoses 40 weeks gestation of Z3A.40 Exercise-induced asthma J45.990 Severe obesity due to excess calories affecting in second trimester O99.212; E66.01 Trimester: second trimester Obesity type affecting : severe obesity due to excess calories Encounter for supervision of normal first in second trimester Z34.02 Trimester: second trimester Current moderate episode of major depressive disorder without prior episode F32.1 Major depression recurrence: single episode Active/Remission status: currently active Major depression episode severity: moderate
[2024-12-18] MEDS: fentaNYL 50 mcg/mL INJ 2mL IVP (18:48)
[2024-12-18] MEDS: magnesium sulfate premix 4 GM/100 ML PREMIX IV (20:29)
[2024-12-18] MEDS: magnesium sulfate premix 20 GM/500 ML BAG IV (20:54)
--- NOTE | 2024-12-18 21:17 | P.PN_ITS ---
PARAPROFESSIONAL AIDE TEACHER Subjective 2 Subjective: Interval history: 19-year-old female G1, P0 at 40.1 weeks gestation admitted for elective induction of labor has progressed and is now complete/-1 vertex. Earlier in labor patient's blood pressure increased, patient was started on magnesium sulfate 4 g bolus 2 g maintenance. Blood pressure responded and no hypertensive medications has been started. Patient declined an epidural, will allow to labor down or push which ever is her preference, as long as EFM is reassuring. Labor: Station: -1 Amniotic Membrane Status: Intact Monitor Mode: Palpation Contraction Pattern: Regular Status: Category I Vitals/I&O/Wt Last Vital Signs Temp 98.9 F 12/18/24 17:56 Pulse 100 12/18/24 20:56 Resp 20 H 12/18/24 18:48 BP 140/90 12/18/24 20:56 Pulse Ox 95 12/18/24 20:37 O2 Del Method Room Air 12/18/24 08:40 12/18/24 12/18/24 12/18/24 06:59 14:59 22:59 Intake Total 247.184 / 247.184 Balance 247.184 / 247.184 Weight last 48 hrs Weight 105.687 kg Data 12/18/24 09:00 A&P Assessment and plan (1) 40 weeks gestation of : (2) Obesity affecting : (3) Supervision of normal first : PDMP PDMP Reviewed: Not Reviewed Attestations 2 Medical Necessity Statement*: Admitted to labor and delivery for elective induction of labor at 40.1 weeks gestation Coding Level of Care Code Acute Code for Chg Fwd Diagnoses 40 weeks gestation of Z3A.40 Severe obesity due to excess calories affecting in second trimester O99.212; E66.01 Trimester: second trimester Obesity type affecting : severe obesity due to excess calories Encounter for supervision of normal first in second trimester Z34.02 Trimester: second trimester
--- NOTE | 2024-12-18 23:42 | P.PCNOB_ITS ---
Delivery Note: Date of delivery: December 18, 2024 Pre-delivery diagnoses: 40.2 wk IUP Obesity affecting Elevated blood pressure during labor (preeclampsia) History of asthma History of major depression Post-delivery diagnoses: Same Procedure: 1. Induction of labor 2. viable male 3. Magnesium sulfate for preeclampsia Op report anesthesia: Local Delivering Physician: Kenyetta Grove DO Estimated blood loss (mL): 300 Findings: Viable baby boy 7 pounds 1ounces Post Delivery Diagnoses: Obesity affecting : Qualifiers: Trimester: second trimester Obesity type affecting : severe obesity due to excess calories Qualified Code(s): O99.212 - Obesity complicating , second trimester; E66.01 - Morbid (severe) obesity due to excess calories Supervision of normal first : Qualifiers: Trimester: second trimester Qualified Code(s): Z34.02 - Encounter for supervision of normal first , second trimester Delivery: 19-year-old female G1 now P1 delivered v ia of viable male after elective induction of labor. Patient progressed to complete dilatation, was allowed to labor down followed by pushing with nursing staff assistance. The vertex presented at the perineum and delivered OA presentation, patient was encouraged to continue pushing with contractions and started to fail to push effectively. With crying and screaming with fear of pressure and pain because of no epidural she was very hesitant to continue to push. Nursing staff was instructed to supply suprapubic pressure in order to encourage patient to push and pushed effectively. Patient failed to push adequately, the posterior shoulder was rotated in order to accommodate and assist delivery of the shoulders. With this pressure applied finally an adequate push with rotation enabled delivery after 3 to 4 minutes of the head being delivered. The umbilical cord was clamped and cut and the baby taken to the warmer for nursing assessment and resuscitation. Arterial and venous blood gases were drawn as well as cord blood and handed off. Three-vessel cord was noted. The fundus was massaged and Pitocin and IV solution was started in a bolus manner. The vaginal vault was explored and a second-degree laceration noted, repaired with good anatomical denominational. The uterus was again massaged and the placenta presented in a Ferrell presentation with trailing membranes. Weight?7 pounds 1 ounce ?pending arterial and venous pH pending Mother and infant are both in stable and satisfactory condition Post-Delivery Status: Stable History History History 1 Term 1 Miscarriages/Ectopic Living Children 1 A&P Assessment and plan (1) (spontaneous vaginal delivery): Viable male 7 pounds 1 ounce (2) 40 weeks gestation of : (3) Obesity affecting : (4) Supervision of normal first : (5) Preeclampsia: Continue magnesium sulfate, decreased to 1 g an hour. Will discontinue after 12 hours if blood pressure stable. PDMP PDMP Reviewed: Not Reviewed Coding Level of Care Code Acute Code for Chg Fwd Diagnoses (spontaneous vaginal delivery) O80 40 weeks gestation of Z3A.40 Severe obesity due to excess calories affecting in second trimester O99.212; E66.01 Trimester: second trimester Obesity type affecting : severe obesity due to excess calories Encounter for supervision of normal first in second trimester Z34.02 Trimester: second trimester Preeclampsia O14.90
[2024-12-19] VITALS (21 sets, daily range): BP systolic 113–150; BP diastolic 66–85; PULSE 82–118; RESP 16–18; TEMP 36.6–37.4; O2SAT 95–98
[2024-12-19] MEDS: acetaminophen 325 mg Tablet 650 MG PO (01:52)
[2024-12-19] MEDS: benzocaine-menthol 78 gm Canister 1 SPRAY TOPICAL (01:52)
[2024-12-19] MEDS: dextrose 5%-lactated ringers 1,000 ML 125 ML IV (04:01)
[2024-12-19 04:53] LABS: Magnesium Level (OB Only) 4.7 mg/dL (5.0-7.5)
[2024-12-19] MEDS: docusate sodium 100 mg Capsule PO ×2 (09:48→15:37)
[2024-12-19] MEDS: ferrous sulfate EC 325 mg Tablet PO (09:48)
[2024-12-19] MEDS: PRENATAL VIT NO.130/IRON/FOLIC 1 EACH TABLET PO (09:48)
[2024-12-19] MEDS: ibuprofen 800 mg tablet PO ×3 (09:48→21:05)
--- NOTE | 2024-12-19 10:57 | P.PN_ITS ---
APPRAISER OIL AND WATER Subjective 2 Subjective: Interval history: 19-year-old female G1, P1 s/p rachna hamilton this morning on 12/19/2024. Patient labor was complicated with elevated blood pressures, she was started on magnesium sulfate which was discontinued this morning. Her blood pressures have remained in the normal range and has required no oral hypertensive medication. Patient denies headaches or blurred vision no chest pain or shortness of breath. Discussed with patient expectations and possibility of elevated blood pressures to recur. Patient is encouraged to increase fluids, high-fiber diet and to start ambulation in the room followed by in the hallway. Patient verbalizes understanding. Labor: Station: -1 Amniotic Membrane Status: Intact Monitor Mode: Palpation Contraction Pattern: Regular Status: Category I Vitals/I&O/Wt Last Vital Signs Temp 98.1 F 12/19/24 08:00 Pulse 99 12/19/24 08:00 Resp 16 12/19/24 08:00 BP 114/73 12/19/24 08:00 Pulse Ox 98 12/19/24 05:50 O2 Del Method Room Air 12/19/24 05:50 12/18/24 12/19/24 12/19/24 22:59 06:59 14:59 Intake Total 247.184 / 933.865 8673.333 / 1655.517 Output Total 690 / 690 Balance 247.184 / 247.184 718.333 / 965.517 Weight last 48 hrs Weight 105.687 kg Physical Exam 2 Cardio: COMMON NORMALS: regular rate, regular rhythm and No murmurs present (Cardio) RATE: regular rate RHYTHM: regular rhythm Back/Pelvis: OTHER: Abdomen?soft, fundus firm 3 cm below umbilicus. Lochia?rubra light. Extremity: COMMON NORMALS: normal to inspection, no clubbing, cyanosis or edema and no calf tenderness Urinary Catheter Management: Sun: Cath Placed During This Visit: yes, but has since been removed by the nurse Reason for Continuing Indwelling Catheter: Accurate Measurement of Urinary Output in Critically Ill Patients Urinary Catheter Date of Insertion: 12/18/24 Urinary Catheter Time of Insertion: 20:45 Date Urinary Catheter Removed: 12/19/24 Time Urinary Catheter Discontinued: 08:30 Data 12/18/24 09:00 A&P Assessment and plan (1) Preeclampsia: (2) (spontaneous vaginal delivery): (3) 40 weeks gestation of : (4) Exercise-induced asthma: (5) Obesity affecting : (6) Supervision of normal first : (7) Major depression: PDMP PDMP Reviewed: Not Reviewed Attestations 2 Medical Necessity Statement*: Patient admitted to labor and delivery at 40.1 weeks gestation for elective induction of labor. Coding Level of Care Code Acute Code for Chg Fwd Diagnoses Preeclampsia O14.90 (spontaneous vaginal delivery) O80 40 weeks gestation of Z3A.40 Exercise-induced asthma J45.990 Severe obesity due to excess calories affecting in second trimester O99.212; E66.01 Trimester: second trimester Obesity type affecting : severe obesity due to excess calories Encounter for supervision of normal first in second trimester Z34.02 Trimester: second trimester Current moderate episode of major depressive disorder without prior episode F32.1 Major depression recurrence: single episode Active/Remission status: currently active Major depression episode severity: moderate
[2024-12-19 11:32] LABS: Hematocrit 32.9 % (36-47); Mean Corpuscular HGB Conc 32.5 g/dL (30-55); Mean Corpuscular Hemoglobin 26.8 pg (27-33); Mean Corpuscular Volume 82.5 fl (85-98); Platelet Count 314 10^3/cmm (157-399); Red Blood Count 3.99 10^6/uL (3.85-5.65); Red Cell Distribution Width 13.6 % (12.1-15.1); White Blood Count 18.07 10^3/uL (3.29-11.43)
--- NOTE | 2024-12-19 17:07 | PC.NURSE ---
PT UP TO BATHROOM AND DID WELL TOLD HER THAT SHE CAN BE UP BY HERSELF BUT TO CALL IF SHE NEEDED HELP.
[2024-12-20 04:21] VITALS: BP 113/63; PULSE 65; RESP 16; TEMP 36.9; O2SAT 97
[2024-12-20 08:30] VITALS: BP 142/86; PULSE 81; RESP 18; TEMP 36.8
[2024-12-20] MEDS: PRENATAL VIT NO.130/IRON/FOLIC 1 EACH TABLET PO (09:33)
[2024-12-20] MEDS: ferrous sulfate EC 325 mg Tablet PO (09:33)
[2024-12-20] MEDS: docusate sodium 100 mg Capsule PO (09:33)
[2024-12-20] MEDS: ibuprofen 800 mg tablet PO (09:33)
--- NOTE | 2024-12-20 11:07 | PM.OBGYDC ---
Discharge Providers MARKET GARDENER Date of Admission: 12/18/24 08:00 Date of Discharge: 12/20/24 Attending Provider at Admission: Kenyetta Grove DO Attending Provider at Discharge: Kenyetta Grove DO Primary MARKET GARDENER: Dr. Cody Samayoa Primary Care Provider: Linda Tmolin NP Diagnoses at Discharge Discharge Diagnosis (1) Preeclampsia: Details from hospital stay: 19-year-old female G1, P1 s/p viable male at 40.1 weeks gestation. Patient was admitted for elective induction with cervical ripening with Cytotec. Patient progressed through labor with with elevated blood pressures toward the end of her laboring process. Magnesium sulfate was given and patient required no oral hypertensive medication. Patient's stay has progressed well and uneventful. Patient's blood pressure ranges have been normal. Patient denies headaches, blurred vision, shortness of breath or chest pain. She denies excessive vaginal bleeding or passage of large clots. Patient is breast and bottlefeeding. Patient's diet was reviewed to include high-fiber foods and increase fluids. Patient is encouraged to continue vitamins as long as she is breast-feeding. Due to patient's preeclampsia during labor patient is encouraged to closely monitor any signs of severe headache shortness of breath or chest pain or episodes of high blood pressure. I reviewed with patient that she could be at high risk for hypertension in the future. VSS, afebrile Abdomen?soft, fundus firm Lochia?rubra light Extremities?no edema, negative Homans' sign. Lab?hemoglobin 10.7 hematocrit 32.9 Status: Acute (2) (spontaneous vaginal delivery): Status: Acute (3) 40 weeks gestation of : Status: Acute (4) Exercise-induced asthma: Status: Acute (5) Obesity affecting : Status: Acute Qualifiers: Trimester: second trimester Obesity type affecting : severe obesity due to excess calories Qualified Code(s): O99.212 - Obesity complicating , second trimester; E66.01 - Morbid (severe) obesity due to excess calories (6) Supervision of normal first : Status: Acute Qualifiers: Trimester: second trimester Qualified Code(s): Z34.02 - Encounter for supervision of normal first , second trimester (7) Major depression: Status: Acute Qualifiers: Major depression recurrence: single episode Active/Remission status: currently active Major depression episode severity: moderate Qualified Code(s): F32.1 - Major depressive disorder, single episode, moderate Permanent problem details: hx of cutting; not on med, not in counseling Reason for Visit Reason for Visit: IOL Hospital Course Hospital Course See above note under discharge diagnosis details for hospital stay. Information Peripartum Data: Infant Delivery Method: Vaginal Physical Exam Urinary Catheter Management: Sun: Cath Placed During This Visit: yes, but has since been removed by the nurse Reason for Continuing Indwelling Catheter: Accurate Measurement of Urinary Output in Critically Ill Patients Urinary Catheter Date of Insertion: 12/18/24 Urinary Catheter Time of Insertion: 20:45 Date Urinary Catheter Removed: 12/19/24 Time Urinary Catheter Discontinued: 08:30 History History History 1 Term 1 Miscarriages/Ectopic Living Children 1 Discharge Data Studies Completed and Pending Laboratory Results WBC 18.07 10^3/uL (3.29-11.43) H 12/19/24 11:26 RBC 3.99 10^6/uL (3.85-5.65) 12/19/24 11:26 Hgb 10.70 g/dL (11.27-16.99) L 12/19/24 11:26 Hct 32.9 % (36-47) L 12/19/24 11:26 MCV 82.5 fl (85-98) L 12/19/24 11:26 MCH 26.8 pg (27-33) L 12/19/24 11:26 MCHC 32.5 g/dL (30-55) 12/19/24 11:26 RDW 13.6 % (12.1-15.1) 12/19/24 11:26 Plt Count 314 10^3/cmm (157-399) 12/19/24 11:26 MPV 10.0 fL (7.4-10.4) 12/19/24 11:26 Neut % (Auto) 72.5 % 12/18/24 09:00 Lymph % (Auto) 19.2 % 12/18/24 09:00 Edmunds % (Auto) 6.7 % 12/18/24 09:00 Eos % (Auto) 0.7 % 12/18/24 09:00 Baso % (Auto) 0.4 % 12/18/24 09:00 Neut # (Auto) 7.27 10^3/uL (1.8-7.7) 12/18/24 09:00 Lymph # (Auto) 1.9 10^3/uL (0.8-4.8) 12/18/24 09:00 Edmunds # (Auto) 0.7 10^3/uL (0.2-0.9) 12/18/24 09:00 Eos # (Auto) 0.1 10^3/uL (0.0-0.8) 12/18/24 09:00 Baso # (Auto) 0.0 10^3/uL (0.0-0.1) 12/18/24 09:00 Nucleated RBC % (auto) 0 % 12/18/24 09:00 Nucleated RBCs # 0.0 /100WBC 12/18/24 09:00 Magnesium 4.7 mg/dL (5.0-7.5) L* 12/19/24 04:29 Blood Type O Positive 12/18/24 09:00 Rho(D) Type Rh positive 12/18/24 09:00 Antibody Screen Negative 12/18/24 09:00 Vitals Last Vital Signs Temp 98.4 F 12/20/24 04:21 Pulse 65 12/20/24 04:21 Resp 16 12/20/24 04:21 BP 113/63 12/20/24 04:21 Pulse Ox 97 12/20/24 04:21 O2 Del Method Room Air 12/20/24 04:21 Results Labs OB ([facility]): Obstetrics US 11/27/24 Blood Type O Positive 12/18/24 Antibody Screen Negative 12/18/24 Hct, (36-47) 32.9 % L 12/19/24 Hgb, (11.27-16.99) 10.70 g/dL L 12/19/24 Rho(D) Type Rh positive 12/18/24 Plt Count, (157-399) 314 10^3/cmm 12/19/24 Hep Bs Antigen, (Nonreactive) Non-reactive 07/10/24 Hep B Core IgM Ab, (Nonreactive) Non-reactive 12/13/23 Hepatitis C Antibody, (Nonreactive) Non-reactive 07/10/24 Rubella IgG Antibody, (0.0-10.0) 61.4 IU/mL H 07/10/24 RPR, (Nonreactive) Nonreactive 07/10/24 HIV 1&2 Ab & HIV 1 Ag, (Non-Reactiv) Non-reactive 07/10/24 Glucose 1 Hr 50 gm, (85-140) 99 mg/dL 08/14/24 Gest Glucose Tolerance mg/dL 10/02/24 Hemoglobin A1c, (4.0-6.0) 4.9 % 07/10/24 Ser , Semi-Qnt 626160.00 mIU/mL 05/16/24 HCG, Qual, (Negative) Positive H 06/12/24 Urine Opiates Screen, (Negative) Negative ng/mL 07/10/24 Ur Barbiturates Screen, (Negative) Negative ng/mL 07/10/24 Ur Phencyclidine Scrn, (Negative) Negative ng/mL 07/10/24 Ur Amphetamines Screen, (Negative) Negative ng/mL 07/10/24 U Benzodiazepines Scrn, (Negative) Negative ng/mL 07/10/24 Urine Cocaine Screen, (Negative) Negative ng/mL 07/10/24 U Marijuana (THC) Screen, (Negative) Negative ng/mL 07/10/24 Micro Urine Specimen 12/06/24 Discharge Plan Discharge Patient Disposition: Home Condition: Stable Prescriptions: Discontinued docusate sodium [Colace] 100 mg capsule 100 mg PO DAILY No Action Gummies 400 mcg-35 mg- 25 mg-5 mg tablet,chewable 1 tab PO DAILY Discharge Orders: Discharge Order (Routine); Ordered 12/20/24 Ordered By: Kenyetta Grove Referrals: Kelle Zambrano, MARISA [Nurse Practitioner, MARKET GARDENER] Discharge Diet: Regular Discharge Activity: Increase activity as tolerated Patient Instructions: Depression (DC), Opioid Safety (DC), Preeclampsia and Eclampsia After Delivery (GEN), Hemorrhage (DC), OB Discharge Report, OB Food/Drug Interaction Guide, Opioid Safety, OB Home Care, OB Vaginal Deliveries - [facility], Abnormal Bleeding Activity Restrictions/Additional Instructions: No heavy lifting pushing or pulling. No sexual intercourse x 6 weeks. Patient to continue her vitamins daily. Assessment: 1. S/p viable male at 40.1 weeks gestation 2. Preeclampsia?resolved 3. Obesity affecting 4. History of exercise-induced asthma 5. History of major depression Plan of Treatment: DC patient to home Patient to follow-up for evaluation in 4 to 6 weeks at the women[facility] clinic Discharge Attestations MARKET GARDENER Time Spent in Discharge Care*: less than 30 min Coding Level of Care Code Acute Code for Chg Fwd Diagnoses Preeclampsia O14.90 (spontaneous vaginal delivery) O80 40 weeks gestation of Z3A.40 Exercise-induced asthma J45.990 Severe obesity due to excess calories affecting in second trimester O99.212; E66.01 Trimester: second trimester Obesity type affecting : severe obesity due to excess calories Encounter for supervision of normal first in second trimester Z34.02 Trimester: second trimester Current moderate episode of major depressive disorder without prior episode F32.1 Major depression recurrence: single episode Active/Remission status: currently active Major depression episode severity: moderate
[2024-12-20 13:00] VITALS: BP 123/73; PULSE 81; RESP 18; TEMP 36.7
== END 2024-12-20 13:20 | disposition home or self-care (01) | DRG 806 ==
PROVIDERS: Admitting Provider Obstetrics & Gynecology; Visit Provider Obstetrics & Gynecology
DX: O48.0 Post-term pregnancy (principal); F32.1 Major depressive disorder, single episode, moderate; Z37.0 Single live birth; Z3A.40 40 weeks gestation of pregnancy; O99.214 Obesity complicating childbirth; E66.01 Morbid (severe) obesity due to excess calories; O14.94 Unspecified pre-eclampsia, complicating childbirth; O70.1 Second degree perineal laceration during delivery; O75.89 Other specified complications of labor and delivery; J45.990 Exercise induced bronchospasm; Z91.51 Personal history of suicidal behavior; O99.344 Other mental disorders complicating childbirth; O99.52 Diseases of the respiratory system complicating childbirth
CPT/HCPCS: 36415; 51702; 59409; 83735; 85025; 85027; 86850; 86900; 96374; J2590; J3010; J3475; J7121; J9999

== ENCOUNTER → 2025-06-03 12:48 | Outpatient (BNVA) | payer OTHER, MEDICAID, SELFPAY | PROVIDERS: Visit Provider Nurse Practitioner Women's Health | DX: Z12.4 Encounter for screening for malignant neoplasm of cervix (principal) | CPT/HCPCS: 88175 ==